=== PATIENT | female | born 1950 | race African-American/Black ===

== ENCOUNTER 2023-01-16 15:47 | Emergency (ER) | payer OTHER ==
[~2023-01-16] VITALS: Ht 165.1 cm; Wt 66.2 kg
[2023-01-16 16:00] VITALS: BP_SYST 148; PULSE 66; RESP 18; TEMP 98; O2SAT 100
[2023-01-16] MEDS ORDERED: TRAM50TA2 PO (17:23)
[2023-01-16] MEDS ORDERED: ONDA-8 TL (17:23)
[2023-01-16] MEDS ORDERED: IBUP-1969 PO (17:23)
[2023-01-16] MEDS ORDERED: ONDANSETRON 4 MG ODT TAB PO ONE (17:30)
[2023-01-16 18:06] VITALS: BP_SYST 148; PULSE 66; RESP 18; TEMP 98; O2SAT 100
== END 2023-01-16 18:06 | disposition home or self-care (01) ==
LOC: SED 15:47
DX: R51.9 Headache, unspecified (principal); R11.0 Nausea; R42 Dizziness and giddiness; I10 Essential (primary) hypertension; E78.5 Hyperlipidemia, unspecified; Z79.899 Other long term (current) drug therapy
CPT/HCPCS: 99284; 70450; 76376; Q0162